=== PATIENT | female | born 1965 | race African-American/Black ===

== ENCOUNTER → 2017-03-19 | Outpatient (CLI) | payer MEDICAID | END | disposition home or self-care (01) | LOC: MERGE 09:00 → RAD 09:01 | PROVIDERS: ATTEND Physical Medicine & Rehabilitation | DX: M71.21 Synovial cyst of popliteal space [Baker], right knee (principal); M25.461 Effusion, right knee; M25.761 Osteophyte, right knee; Z98.890 Other specified postprocedural states ==